=== PATIENT | male | born 1980 | race Caucasian/White ===

== ENCOUNTER 2019-01-02 09:02 | Day surgery (SDC) | payer OTHER ==
[~2019-01-02] VITALS: Ht 185.4 cm; Wt 105.7 kg
[2019-01-02] MEDS ORDERED: CEFAZOLIN SOD 1 GM in D5W 50 ML IV ONE (09:30)
[2019-01-02] MEDS ORDERED: SEVOFLURANE 15 MIN GAS INH ONE (10:20)
[2019-01-02] MEDS ORDERED: NS IRRIG SOLN 1000 ML IR ONE (10:20)
[2019-01-02] MEDS ORDERED: MIDAZOLAM HCL 5 MG/5 ML VIAL IVP ONE (10:20)
[2019-01-02] MEDS ORDERED: ROCURONIUM BROMIDE 10 MG/ML (ZEMURON) IV ONE (10:20)
[2019-01-02] MEDS ORDERED: ONDANSETRON HCL 4 MG/2 ML VIAL IVP ONE (10:20)
[2019-01-02] MEDS ORDERED: GLYCOPYRROLATE 0.2 MG/ML VIAL IJ ONE (10:20)
[2019-01-02] MEDS ORDERED: NEOSTIGMINE METHYLSULFATE 1 MG/ML, 10 ML VIAL IVP ONE (10:20)
[2019-01-02] MEDS ORDERED: BUPIVACAINE /PF 0.25% 30 ML VIAL INJ ONE (10:20)
[2019-01-02] MEDS ORDERED: fentaNYL CITRATE/PF 100 MCG/2 ML AMP IVP ONE (10:20)
[2019-01-02] MEDS ORDERED: LR 1,000 ML IV.SOLN IV ONE (10:20)
[2019-01-02] MEDS ORDERED: PROPOFOL 200MG/ 20ML VIAL (DIPRIVAN) IV ONE (10:20)
[2019-01-02] MEDS ORDERED: POLYMYXIN 500,000/BACIT.10,000 UNITS in NS IRR 1 L IR ONE (10:31)
[2019-01-02] MEDS ORDERED: MORPHINE 4 MG/ML INJ. SYRINGE IVP PRN ×3 (11:00)
[2019-01-02] MEDS ORDERED: LR 1,000 ML IV SCH (11:00)
[2019-01-02] MEDS ORDERED: METOCLOPRAMIDE HCL 10 MG/2 ML VIAL IVP PRN (11:00)
[2019-01-02] MEDS ORDERED: D5/0.45 NS 1,000 ML IV SCH (11:11)
[2019-01-02] MEDS ORDERED: HYDROmorphone 2 MG/ML VIAL IVP PRN (11:15)
[2019-01-02] MEDS ORDERED: HYDROcodone/ACETAMIN 5-325 MG TAB (NORCO/ VICODIN) PO PRN ×2 (11:15)
[2019-01-02] MEDS ORDERED: HYDROcodone/ACETAMIN 5-325 MG TAB (NORCO/ VICODIN) ONE (12:43)
[2019-01-02 12:49] VITALS: BP_SYST 108
== END 2019-01-02 15:00 | disposition home or self-care (01) ==
LOC: SDS 09:02 → SMU 10:06 → SDS 15:00
PROVIDERS: ATTEND Colon & Rectal Surgery
DX: K42.0 Umbilical hernia with obstruction, without gangrene (principal); J45.909 Unspecified asthma, uncomplicated; I10 Essential (primary) hypertension; Z98.890 Other specified postprocedural states; Z79.899 Other long term (current) drug therapy; Z82.49 Family history of ischemic heart disease and other diseases of the circulatory system; Z68.31 Body mass index [BMI] 31.0-31.9, adult; E66.01 Morbid (severe) obesity due to excess calories
CPT/HCPCS: 49587; J0690; J2250; J2405; J2704; J2710; J3010; J3490 ×2; J7060; J7120